=== PATIENT | male | born 1955 | race Caucasian/White ===

== ENCOUNTER → 2020-06-01 | Outpatient (CLI) | payer MEDICARE, OTHER ==
--- NOTE | 2020-06-04 14:13 | RADIOLOGY REPORT (SQ) ---
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 Contrasted imaging performed helical scanning technique and dynamic intravenous contrast injection. Images reviewed with lung, soft tissue, and bone windows. Reconstructed coronal a nd sagittal MPR images reviewed. Delayed images for evaluation of the urinary system also acquired. A ll images stored on PACS. All CT scanners at this facility use dose modulation, iterative reconstruction, and/or weight based d osing when appropriate to reduce radiation dose to as low as reasonably achievable (ALARA). [facility]: Dose Right [facility]: CareDose [facility]: Dose Right [facility]: Teradose 4D [facility]: [email or web address] CONTRAST TYPE AND DOSE: contrast/concentration: Isovue 350.00 mmol/ml; Total Contrast Delivered: 88. 0 ml; Total Saline Delivered: 49.9 ml RENAL FUNCTION: Creatinine 0.9 RADIATION DOSE: CT Rad equipment meets quality standard of care and radiation dose reduction techniq ues were employed. CTDIvol: 10.1 - 10.9 mGy. DLP: 1584 mGy-cm. . LIMITATIONS: None. FINDINGS: LOWER CHEST: No significant findings. No nodules or infiltrates. LIVER: Normal size. No masses. No dilated ducts. SPLEEN: Normal size. No focal lesions. PANCREAS: No masses. No significant calcifications. No adjacent inflammation or peripancreatic fluid collections. Pancreatic duct not dilated. GALLBLADDER: Nonvisualized. ADRENAL GLANDS: No significant masses or asymmetry. RIGHT KIDNEY AND URETER: There is a 21 bypass 19 mm right upper pole renal lesion without significant enhancement on postcontrast imaging (Hounsfield units: Precontrast 44, postcontrast early 47, postc ontrast delayed 47). Additional cysts. Scattered nonobstructing stones. No hydronephrosis or hydr oureter. LEFT KIDNEY AND URETER: No definite solid masses. There is an additional intermediate density with l esion within the left anterior interpolar region without significant postcontrast enhancement measuri ng 18 x 17 mm (Hounsfield units: Precontrast 53, early post contrast 57, late postcontrast 53). No significant calcifications. No hydronephrosis or hydroureter. AORTA AND VESSELS: No aneurysm. No dissection. Renal arteries, SMA, celiac without stenosis. RETROPERITONEUM: No retroperitoneal adenopathy, hemorrhage or masses. BOWEL AND PERITONEAL CAVITY: Mild asymmetric wall thickening of the ascending colon (series 3, image 54). Masses or inflammatory changes. No free fluid or peritoneal masses. APPENDIX: Normal. PELVIS: No mass. No free fluid. Normal bladder. ABDOMINAL WALL: No soft tissue masses. Bilateral fat containing inguinal hernias. BONES: No acute bony abnormality. No discrete lytic or blastic osseous lesions. Lower lumbar facet arthropathy. No suspicious osseous lesions. OTHER: No other significant finding. IMPRESSION: 1. Bilateral intermediate density renal lesions without significant postcontrast enhanc ement most compatible with hemorrhagic or proteinaceous cysts. 2. Mild asymmetric thickening of the ascending colonic wall. Recommend correlation with colonoscopi c history. 3. No evidence of acute intra-abdominal/pelvic process. Additional incidental findings as above. TECHNICAL DOCUMENTATION: JOB ID: [id number] Quality ID # [id number]: Final reports with documentation of one or more dose reduction techniques (e.g., Au tomated exposure control, adjustment of the mA and/or kV according to patient size, use of iterative reconstruction technique) 2010 [employer]- All Rights Reserved Reading location - IP/workstation name: [email or web address]
== END ==
LOC: RAD 14:49
PROVIDERS: ATTEND Surgery Surgical Oncology
DX: C18.2 Malignant neoplasm of ascending colon (principal); K40.20 Bilateral inguinal hernia, without obstruction or gangrene, not specified as recurrent
CPT/HCPCS: 74178; 82565